=== PATIENT | male | born 1965 | race Caucasian/White ===

== ENCOUNTER → 2016-08-13 | Outpatient (CLI) | payer BC ==
--- NOTE | 2016-08-14 11:14 | DI ---
CT ABDOMEN SCAN WITHOUT IV CONTRAST, 08/13/2016 2:40 PM : Clinical History: Epigastric abdominal wall mass. Previous Exam: None at this facility. Scans are performed from the lower lung bases through the liver and kidneys without IV contrast. The lung bases are clear. There is diffuse fatty infiltration of the liver. Both adrenal glands and t he spleen are normal. This patient has a congenital "horseshoe" kidney. Both kidneys have low density lesions consistent with cysts and these measure in the range of 25 mm in the left kidney and 30 mm i n the right kidney. There is no hydronephrosis. No renal calculi are present. There are no abnormal r etrocrural or periaortic nodes. There is no ascites. In the epigastric region, there is a defect on t he right side of midline where there is diastases recti. The defect measures approximately 20 mm in d iameter and contains herniated mesenteric fat that has an estimated collection measuring approximatel y 50 x 50 x 40 mm. READIN. This patient has diastases recti with a defect in the right side of the membrane mid way between the xiphoid and umbilicus. The size of the defect is 20 mm in diameter. Mesenteric fat has herniated into the subcutaneous fat in it measures about 15 x 50 x 40 mm. 2. There is an incidental finding of a congenital "horseshoe" kidney that otherwise appears normal. 3. There is diffuse fatty infiltration of the liver.
== END ==
LOC: CT 14:36
PROVIDERS: ATTEND Surgery
DX: R19.06 Epigastric swelling, mass or lump (principal); Q79.59 Other congenital malformations of abdominal wall
CPT/HCPCS: 74150

== ENCOUNTER 2016-09-02 07:46 | Day surgery (SDC) | payer BC ==
[~2016-09-02 07:46] MED LIST: LIDOCAINE W/ SODIUM BICARB 0.5 ML SYR ONE; Lactated Ringers 1,000 ML PRIMARY IV ONE
[2016-09-02] MEDS ORDERED: ceFAZolin Inj 2gm (Premix) 50 ML IV ONE (08:01)
[2016-09-02] MEDS ORDERED: MIDAZOLAM 5 MG/1 ML ONE (09:12)
[2016-09-02] MEDS ORDERED: fentaNYL Inj 100 MCG/2 ML VIAL ONE (09:12)
[2016-09-02] MEDS ORDERED: BUPivacaine Inj 0.5% PF (5mg/ml) 10ml vial ONE (09:18)
[2016-09-02] MEDS ORDERED: LIDOCAINE 2% 20 MG/ML - 20 ML VIAL ONE (09:18)
[2016-09-02] MEDS ORDERED: Lactated Ringers 1,000 ML PRIMARY IV ONE (09:39)
[2016-09-02] MEDS ORDERED: BUPivacaine Liposome/PF (Exparel) Inj 20ml vial INFIL ONE ×2 (09:56→09:59)
[2016-09-02] MEDS ORDERED: KETOROLAC 30 MG/1 ML VIAL ONE (10:00)
[2016-09-02] MEDS ORDERED: NORMAL SALINE 10 ML SYRINGE FLUSH IVP PRN (10:17)
[2016-09-02] MEDS ORDERED: MORPHINE SULFATE 2 MG/1 ML IVP PRN (10:17)
[2016-09-02] MEDS ORDERED: HYDROcodone-APAP 7.5 MG-325 MG TABLET PO PRN (10:17)
--- NOTE | 2016-09-02 10:17 | GEN.OPNOTE ---
Operative Note Surgery Date: 09/02/16 Preoperative Diagnosis: Incisional hernia Postoperative Diagnosis: Chronically incarcerated incisional hernia Procedure: Incisional herniorrhaphy with Prolene mesh Surgeon: Josr Sam MD Anesthesia Provider: Soto Mcnair CRNA Anesthesia Type: Local, MAC Estimated Blood Loss (mL): 5 Fluids: LR please see anesthesia notes in EMR. Local anesthetic was 0.5 Marcaine 2% Xylocaine 10 mL used. 20 mL of Exoprel. 2 g Ancef Pathology: None sent Indications: Patient has incisional hernia Findings: Incisional hernia with chronically incarcerated omentum Complications: None Operative Summary: Patient is brought operating room. Placed supine position. Given IV sedation. Prepped draped sterile fashion. Timeout performed per protocol. Made a skin incision overlying the palpable mass. Hemostased and left cautery dissection to [facility] tissue electrocautery we then dissected free what appeared to be omentum that was herniating through. I was able to manually reduce the hernia and the hernia sac. Closed the fascial defect using 0 Prolene contents running suture. Copious Prolene mesh appropriate size and shape. The onlay patch with the Prolene mesh. Infiltrated Exoprel for postoperative pain control. Closed the skin with 4-0 Vicryl continuous running subcuticular stitch. Steri-Strips applied, sterile dressings applied. Counts were correct. Patient is transferred recovery room in stable condition.
[2016-09-02 11:39] VITALS: TEMP 97.4
[2016-09-02 11:45] VITALS: RESP 16
== END 2016-09-02 11:20 | disposition home or self-care (01) ==
LOC: SDSC 07:46
PROVIDERS: ATTEND Surgery
DX: K43.2 Incisional hernia without obstruction or gangrene (principal)
CPT/HCPCS: 49561; 49568; C9290; J0690; J1885; J2704; J3010; J2001; J2250; J3490; J7120

== ENCOUNTER → 2017-01-23 | Outpatient (CLI) | payer BC ==
[2017-01-23 14:42] LABS: BLOOD UREA NITROGEN 16 mg/dL (7-22); CALCIUM 9.9 mg/dL (8.7-10.7); CHOL/HDL RATIO 5.42 RATIO (0-4.0); EST GLOMERULAR FILTRATION > 60 (>60 ml/min/1.73m(2)); HDL CHOLESTEROL 42 mg/dL (40-150); SERUM ALBUMIN 4.2 g/dL (3.5-4.8); SERUM CHOLESTEROL 228 mg/dL (120-200)
[2017-01-23 14:45] LABS: HEMOGLOBIN A1C 7.79 % (4.2-6.0)
== END ==
LOC: LAB 08:15
PROVIDERS: ATTEND Family Medicine
DX: E11.9 Type 2 diabetes mellitus without complications (principal); E78.00 Pure hypercholesterolemia, unspecified
CPT/HCPCS: 80053; 80061; 83036